=== PATIENT | female | born 1955 | race Caucasian/White ===

== ENCOUNTER 2023-09-12 12:56 | Emergency (ER) | payer MEDICARE, OTHER ==
[~2023-09-12] VITALS: Ht 167.6 cm; Wt 56.7 kg
[2023-09-12 13:02] VITALS: TEMP 98.2
[2023-09-12] MEDS ORDERED: HYDROCODONE/APAP 5/325MG TABLET ONE (14:06)
[2023-09-12] MEDS: HYDROCODONE/APAP 5/325MG TABLET PO ONE (14:11)
[2023-09-12 19:07] VITALS: BP 110/58; O2SAT 99
== END 2023-09-12 15:10 | disposition home or self-care (01) ==
LOC: ER 13:00
DX: S52.592A Other fractures of lower end of left radius, initial encounter for closed fracture (principal); E11.9 Type 2 diabetes mellitus without complications; Z98.890 Other specified postprocedural states; W18.39XA Other fall on same level, initial encounter; Y93.89 Activity, other specified; Y92.89 Other specified places as the place of occurrence of the external cause; Y99.8 Other external cause status
CPT/HCPCS: 73090-TC; 73110